=== PATIENT | male | born 1945 | race Two or more races ===

== ENCOUNTER 2023-09-30 23:38 | Emergency (ER) | payer MEDICARE, OTHER ==
[~2023-09-30] VITALS: Ht 165.1 cm; Wt 68.9 kg
[2023-10-01] MEDS ORDERED: HYDROCODONE/APAP 5/325MG TABLET ONE (00:46)
[2023-10-01] MEDS: HYDROCODONE/APAP 5/325MG TABLET PO ONE (00:48)
[2023-10-01 01:30] VITALS: BP 138/73; TEMP 98.5; O2SAT 100
== END 2023-10-01 02:08 ==
LOC: ER 23:41
DX: M54.50 Low back pain, unspecified (principal); M25.551 Pain in right hip; R56.9 Unspecified convulsions

== ENCOUNTER 2025-03-13 00:17 | Emergency (ER) | payer MEDICARE, OTHER ==
[~2025-03-13] VITALS: Ht 165.1 cm; Wt 83.9 kg
[2025-03-13] MEDS ORDERED: HYDROCODONE/APAP 5/325MG TABLET ONE (01:04)
[2025-03-13] MEDS: HYDROCODONE/APAP 5/325MG TABLET PO ONE (01:09)
[2025-03-13 02:50] VITALS: BP 168/98; TEMP 98.6; O2SAT 96
== END 2025-03-13 02:50 | disposition home or self-care (01) ==
LOC: ER 00:23
DX: G89.29 Other chronic pain (principal); M54.9 Dorsalgia, unspecified; Z88.0 Allergy status to penicillin; Z86.69 Personal history of other diseases of the nervous system and sense organs; Z87.39 Personal history of other diseases of the musculoskeletal system and connective tissue

== ENCOUNTER 2025-03-22 19:41 | Emergency (ER) | payer MEDICARE, OTHER ==
[~2025-03-22] VITALS: Ht 165.1 cm; Wt 77.1 kg
[2025-03-22] MEDS ORDERED: ONDANSETRON HCL/PF 4 MG/2 ML VIAL ONE (20:05)
[2025-03-22 20:09] LABS: PLATELET COUNT (AUTO) 257 K/uL (150-450); RED BLOOD CELL COUNT(AUTO) 4.47 MIL/uL (4.5-6.0); RED CELL DISTRIBUTION WIDTH 14.0 % (11.5-15.0); WHITE BLOOD COUNT (AUTO) 7.7 K/uL (4.3-11.0)
[2025-03-22] MEDS: ONDANSETRON HCL/PF 4 MG/2 ML VIAL IVP ONE (20:15)
[2025-03-22] MEDS: IV NS 0.9% 1,000 ML BAG IV ONE (20:15)
[2025-03-22 20:17] LABS: CALCIUM, SERUM 9.1 mg/dL (8.5-10.1); CREATININE 0.9 mg/dL (0.6-1.3); SODIUM SERUM 135 mmol/L (136-145); UREA NITROGEN, BLOOD 14 mg/dL (7-18)
[2025-03-22 20:23] LABS: ASPARTATE AMINOTRANSFERASE 19 U/L (15-37); TOTAL PROTEIN, SERUM 8.3 g/dL (6.4-8.2)
[2025-03-22 20:26] LABS: LACTIC ACID 1.5 mmol/L (0.4-2.0)
[2025-03-22] MEDS ORDERED: IV NS 0.9% 250 ML IV ONE (20:33)
[2025-03-22] MEDS ORDERED: IOHEXOL-300 100 ML VIAL IV ONE (20:33)
[2025-03-22] MEDS ORDERED: MORPHINE SULFATE INJ 4 MG/ML DISP.SYRIN ONE (21:18)
[2025-03-22] MEDS: MORPHINE SULFATE INJ 2 MG/ML DISP.SYRIN IV ONE (21:23)
[2025-03-22] MEDS: KETOROLAC TROMETHAMINE INJ 30 MG/ML VIAL IV ONE (21:24)
[2025-03-22] MEDS ORDERED: ONDA4TAB11 PO (21:47)
[2025-03-22] MEDS ORDERED: HYDR-4209 PO (21:47)
[2025-03-22] MEDS ORDERED: KETO10TA2 PO (21:47)
[2025-03-22 23:44] VITALS: BP 120/86; TEMP 98.6; O2SAT 97
== END 2025-03-22 23:51 | disposition home or self-care (01) ==
LOC: ER 19:43
DX: K52.9 Noninfective gastroenteritis and colitis, unspecified (principal); G89.29 Other chronic pain; M25.551 Pain in right hip; M79.661 Pain in right lower leg; R06.00 Dyspnea, unspecified; R07.9 Chest pain, unspecified; R10.84 Generalized abdominal pain; Z88.0 Allergy status to penicillin; Z86.69 Personal history of other diseases of the nervous system and sense organs; Z87.39 Personal history of other diseases of the musculoskeletal system and connective tissue
CPT/HCPCS: 99285; 74177; 96374; 93971; 96375; 71045; 96361; 85025; 80048; 83605; 83690; 80076; 36415; 84484; J1885; J2270; J2405; J7030; J7050; Q9967